=== PATIENT | female | born 2000 | race Caucasian/White ===

== ENCOUNTER 2018-08-16 16:07 | Emergency (ER) | payer MEDICAID, OTHER ==
[~2018-08-16] VITALS: Ht 154.9 cm; Wt 54.9 kg
[~2018-08-16 16:07] MED LIST: ALBU8.5H5 INH
[2018-08-16 16:19] VITALS: BP 98/57
[2018-08-16] MEDS ORDERED: ONDANSETRON 2MG/ML, 2ML ONE ×2 (16:33)
[2018-08-16] MEDS ORDERED: MORPHINE SULFATE 4 MG/ML, 1ML ONE (16:33)
== END 2018-08-16 18:13 | disposition home or self-care (01) ==
LOC: ED 17:14
DX: S93.602A Unspecified sprain of left foot, initial encounter (principal); J45.909 Unspecified asthma, uncomplicated; X58.XXXA Exposure to other specified factors, initial encounter; Y93.89 Activity, other specified; Y92.89 Other specified places as the place of occurrence of the external cause; Y99.8 Other external cause status
CPT/HCPCS: 99283

== ENCOUNTER 2019-03-07 12:47 | Emergency (ER) | payer BC, OTHER ==
[~2019-03-07] VITALS: Ht 162.6 cm; Wt 51.9 kg
[2019-03-07 13:19] VITALS: BP 130/72
== END 2019-03-07 15:57 | disposition home or self-care (01) ==
LOC: ED 15:28
DX: S39.012A Strain of muscle, fascia and tendon of lower back, initial encounter (principal); S43.402A Unspecified sprain of left shoulder joint, initial encounter; S53.402A Unspecified sprain of left elbow, initial encounter; V49.49XA Driver injured in collision with other motor vehicles in traffic accident, initial encounter; Y93.89 Activity, other specified; Y92.89 Other specified places as the place of occurrence of the external cause; Y99.8 Other external cause status
CPT/HCPCS: 36415; 72080; 84703; 99284

== ENCOUNTER 2019-04-14 21:23 | Emergency (ER) | payer BC, OTHER ==
[~2019-04-14] VITALS: Ht 154.9 cm; Wt 52.1 kg
[2019-04-14 21:27] VITALS: BP 112/60
[2019-04-14] MEDS ORDERED: IBUP100T PO (21:36)
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
[2019-04-14] MEDS ORDERED: AMOXICILLIN 500 MG CAPSULE ONE (21:54)
--- NOTE | 2019-04-14 21:56 | NUR ---
pt medicated per mar
[2019-04-14] MEDS ORDERED: AMOXICILLIN 500 MG CAPSULE PO ONE (22:00)
== END 2019-04-14 22:03 | disposition home or self-care (01) ==
LOC: ED 21:57
DX: K04.7 Periapical abscess without sinus (principal)
CPT/HCPCS: 99283

== ENCOUNTER 2019-07-05 14:39 | Emergency (ER) | payer SELFPAY ==
[~2019-07-05] VITALS: Ht 154.9 cm; Wt 53.0 kg
[~2019-07-05 14:39] MED LIST changes: +IBUP100T PO
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
[2019-07-05] MEDS ORDERED: ACETAMINOPHEN 500 MG TABLET PO ONE (16:00)
[2019-07-05] MEDS ORDERED: ONDANSETRON ODT 4 MG ONE (16:13)
--- NOTE | 2019-07-05 16:16 | NUR ---
PT MEDICATED PER EMAR FOR NAUSEA. IF NAUSEA SUBSIDES, WILL GIVE TYLENOL
[2019-07-05 16:35] LABS: CULTURE INDICATED? NO; MICROSCOPIC AUTO
[2019-07-05 16:59] LABS: BASOPHILS # (AUTO) 0.02 x10^3/uL (0-0.1); BASOPHILS % (AUTO) 0 % (0-1); EOSINOPHILS # (AUTO) 0.01 x10^3/uL (0-0.4); EOSINOPHILS % (AUTO) 0 % (1-7); LYMPHOCYTES # (AUTO) 0.45 x10^3/uL (1-3.4); LYMPHOCYTES % (AUTO) 3 % (22-44); MD NO; MEAN CORPUSCULAR HEMOGLOBIN 31.4 pg (27.0-34.8); MEAN CORPUSCULAR HGB CONC 33.3 g/dL (32.4-35.8); MEAN CORPUSCULAR VOLUME 94.3 fL (80-100); MEAN PLATELET VOLUME 7.9 fL (7.4-10.4); MONOCYTES # (AUTO) 0.51 x10^3/uL (0.2-0.8); MONOCYTES % (AUTO) 4 % (2-9); NEUTROPHILS # (AUTO) 12.51 x10^3/uL (1.8-6.8); NEUTROPHILS % (AUTO) 93 % (42-75); PLATELET COUNT 359 x10^3/uL (130-400); RED CELL DISTRIBUTION WIDTH 13.7 % (9.6-15.2)
[2019-07-05] MEDS ORDERED: ONDANSETRON ODT 4 MG PO ONE (17:00)
[2019-07-05 17:07] LABS: ALANINE AMINOTRANSFERASE 20 U/L (12-78); ALBUMIN 3.9 g/dL (3.4-5.0); ANION GAP 12 mmol/L (5-15); CALCIUM 8.7 mg/dL (8.5-10.1); CHLORIDE 105 mmol/L (98-107); CREATININE 0.85 mg/dL (0.55-1.02)
[2019-07-05 17:12] LABS: ALKALINE PHOSPHATASE 95 U/L (45-117); BILIRUBIN,TOTAL 0.6 mg/dL (0.2-1.0); TOTAL PROTEIN 8.2 g/dL (6.4-8.2)
--- NOTE | 2019-07-05 17:25 | NUR ---
PT DENIES NAUSEA/VOMITING SINCE ZOFRAN ADMIN. REFUSING TYLENOL AT THIS TIME.
[2019-07-05] MEDS ORDERED: ACETAMINOPHEN 500 MG TABLET ONE (17:39)
[2019-07-05 17:44] VITALS: BP 104/60
--- NOTE | 2019-07-05 18:12 | NUR ---
AWAITING DC PAPERWORK. PT UPDATED
== END 2019-07-05 18:50 | disposition home or self-care (01) ==
LOC: ED 18:45
DX: K52.9 Noninfective gastroenteritis and colitis, unspecified (principal)
CPT/HCPCS: 36415; 80053; 81001; 83690; 84703; 85025; 99283; Q0162

== ENCOUNTER 2019-11-08 15:29 | Emergency (ER) | payer BC, MEDICAID ==
[~2019-11-08] VITALS: Ht 154.9 cm; Wt 52.7 kg
--- NOTE | 2019-11-08 16:11 | NUR ---
PT AMBULATED TO ROOM FROM THE [facility] W/ A STEADY GAIT.
--- NOTE | 2019-11-08 16:20 | NUR ---
THIS IS A 19 YO F W/ C/O SOB THAT STARTED THIS MORNING. PT REPORTS HX OF ASTHMA, CURRENTLY LMP 09/25. PT CONVERSING W/O DIFFICULTY, RESP EVEN AND UNLABORED, VSS, NADN. PT RESTING ON [employer] W/ CALL LIGHT IN REACH, CONNECTED TO MONITORING. AWAITING ED EVAL.
--- NOTE | 2019-11-08 17:08 | NUR ---
AT BEDSIDE FOR ED EVAL.
[2019-11-08 17:18] VITALS: BP 94/51
--- NOTE | 2019-11-08 17:22 | NUR ---
URINE COLLECTED AND SENT TO LAB.
[2019-11-08 17:40] LABS: MICROSCOPIC INDICATED
--- NOTE | 2019-11-08 18:37 | NUR ---
Patient given discharge instructions and they have confirmed that they understand the instructions. Patient ambulatory with steady gait.
== END 2019-11-08 18:43 | disposition home or self-care (01) ==
LOC: ED 17:29
DX: O26.891 Other specified pregnancy related conditions, first trimester (principal); R06.00 Dyspnea, unspecified; R94.31 Abnormal electrocardiogram [ECG] [EKG]; Z3A.08 8 weeks gestation of pregnancy
CPT/HCPCS: 81001; 93005; 99284

== ENCOUNTER 2021-01-04 20:38 | Emergency (ER) | payer BC, MEDICAID ==
[~2021-01-04] VITALS: Ht 154.9 cm; Wt 57.9 kg
[~2021-01-04 20:38] MED LIST changes: -IBUP100T PO; +IBUP100T69 PO
[2021-01-04 20:51] VITALS: BP 101/55
--- NOTE | 2021-01-04 20:56 | NUR ---
PT COVID SWAB COMPLETED IN TRIAGE
[2021-01-04] MEDS ORDERED: DEXAMETHASONE 4 MG TABLET PO ONE (21:00)
== END 2021-01-05 01:27 | disposition left against medical advice (07) ==
LOC: ED 21:00
DX: U07.1 COVID-19 (principal); N39.0 Urinary tract infection, site not specified; R51.9 Headache, unspecified; R05 Cough; R50.9 Fever, unspecified
CPT/HCPCS: 71045; 99284; U0003; U0005